=== PATIENT | male | born 1950 | race Caucasian/White ===

== ENCOUNTER 2022-11-14 08:50 | Outpatient (CLI) | payer MEDICARE, BC ==
[2022-11-14 09:09] LABS: TOTAL HEMOGLOBIN 15.4 G/dl (14.0-17.9)
== END 2022-11-14 23:59 | disposition home or self-care (01) ==
LOC: RT 08:50
PROVIDERS: ATTEND Internal Medicine
DX: R06.02 Shortness of breath (principal)
CPT/HCPCS: 85018; 94010; 94727; 94729

== ENCOUNTER 2024-08-12 13:17 | Outpatient (CLI) | payer MEDICARE, BC ==
--- NOTE | 2024-08-12 20:56 | RADIOLOGY REPORT ---
Procedure: MR MRI UPPER EXTREMITY LEFT 08/12/2024 01:30 PM INDICATION: PAIN IN LEFT SHOULDER COMPARISON: None TECHNIQUE: Multiplanar, multisequence MRI of the left shoulder was performed. FINDINGS: Supraspinatus: Severe tendinosis with interstitial and articular surface tearing involving approxima tely 50% of tendon thickness. No tendon retraction. Mild muscle atrophy seen. Infraspinatus: Mild tendinosis with no evidence for tendon tear. Subscapularis: Moderate tendinosis with high-grade partial articular surface insertional tear with r esultant mural subluxation long head biceps tendon. Teres minor: Normal in morphology and signal. Biceps tendon: Long head biceps tendon is normal in morphology and signal with medially subluxed due to subscapularis tendon tear. Short head biceps tendon is intact. Subacromial bursa: Mild fluid distention. Subcoracoid bursa: Mild fluid distention. Acromioclavicular joint: Degenerative hypertrophy. Type II acromion. Glenohumeral joint: Unremarkable. Glenoid labrum: Unremarkable in this non-arthrographic study. Bones: No suspicious lesion is identified. Other: Unremarkable. IMPRESSION: 1. Moderate degenerative hypertrophy of the acromioclavicular joint and subacromial spurring with christie dence of rotator cuff impingement. 2. Severe supraspinatus tendinosis interstitial and articular-surface tearing without tendon retracti on. Moderate muscle atrophy. 3. Moderate subscapularis tendinosis complicated with a high-grade partial-thickness articular surfac e insertional tear and resultant medial subluxation long head biceps tendon.
== END 2024-08-12 23:59 | disposition home or self-care (01) ==
LOC: MRI02 13:17
PROVIDERS: ATTEND Pediatrics Sports Medicine
DX: M75.102 Unspecified rotator cuff tear or rupture of left shoulder, not specified as traumatic (principal); M25.512 Pain in left shoulder; M75.42 Impingement syndrome of left shoulder; M89.312 Hypertrophy of bone, left shoulder; M62.512 Muscle wasting and atrophy, not elsewhere classified, left shoulder
CPT/HCPCS: 73221